=== PATIENT | male | born 1940 | race Caucasian/White ===

== ENCOUNTER 2017-04-02 12:00 | Day surgery (SDC) | payer MEDICARE, OTHER ==
[~2017-04-02] VITALS: Ht 177.8 cm; Wt 74.8 kg
[~2017-04-02 12:00] MED LIST: AMOX TR-K CLV1 EAC1 PO; ASPIRIN EC325 MG PO; BREO ELLIPTA I1 EACH INH; COMBIVENT RESPIM4 GM INH; CYCLOBENZAPRINE10 MG PO; DEXAMETHASONE4 MG PO; DICLOFENAC POTA50 MG PO; FLUTICASONE PRO16 GM NAS; GABAPENTIN100 MG PO; HYDROCODON-ACE1 EAC8 PO; IPRAT-ALBUT 0.5-3 ML INH; LEVAQUIN500 MG PO; MULTI-DAY VITA1 EACH PO; NICODERM CQ1 EAC1 TD; NORCO 5-325 TA1 EACH PO; PRAVACHOL20 MG PO; PREDNISONE10 MG PO; PROAIR HFA8.5 GM IH; SPIRIVA18 MCG IH; VENTOLIN HFA18 GM INH
--- NOTE | 2017-04-02 14:04 | NUR ---
04/02/17 1404 Maia Topete 1356 PATIENT ARRIVES TO PACU UNRESPONSIVE TO PAIN OR VERBAL STIMUIL. AUDIBLE COARSE LUNG SOUNDS, PRODUCT INSPECTION SUPERVISOR GIVING RACEMIC EPI. RESP EVEN AND UNLABORED. ORAL AIRWAY IN PLACE. MASK AT 8 LITERS. 1400 PATIENT OPENS EYES TO VERBAL STIMULI, FOLLOWS COMMANDS. ORAL AIRWAY REMOVED. PATIENT BACK TO SLEEP.
--- NOTE | 2017-04-02 14:51 | NUR ---
PT IS BACK TO DS FROM PACU. PT IS AWAKE AND ALERT. TOLERATING SIPS OF FLUIDS. CALL LIGHT WITHIN REACH. NO OTHER C/O'S AT THIS TIME. IS AT THE BEDSIDE. WILL REASSESS WITHIN THE HOUR.
--- NOTE | 2017-04-02 17:17 | EKG ---
[facility] [address] [facility] [place] [address] Signed Sinus rhythm with 1st degree AV block Left anterior fascicular block Abnormal ECG No previous ECGs available Confirmed by KWAN BYRD MD ([id number]) on 04/02/2017 5:17:48 PM Electronically Signed By: KWAN BYRD MD 04/02/17 1717 PATIENT NAME: ALFONSO ARNOLD Electrocardiogram DATE OF : 44 PHYSICIAN: KWAN BYRD MD REPORT #: [id number] REPORT IS CONFIDENTIAL AND NOT TO BE RELEASED WITHOUT AUTHORIZATION
--- NOTE | 2017-04-04 12:15 | OR ---
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 Cerebellar metastatic lesions. Long-standing smoking history. POSTOPERATIVE DIAGNOSIS Endobronchial lesion of right middle lobe with mediastinal adenopathy. PROCEDURE Flexible bronchoscopy with brush biopsy of endobronchial lesion. Cup biopsy of endobronchial lesion, right middle lobe. Transbronchial needle biopsy of subcarinal and precarinal lymph nodes. SURGEON: Kelli Green M.D. ANESTHESIA: General endotracheal (Kelli Brambila CRNA). 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 He has a long-standing history of smoking 1-1/2 pack of cigarettes daily. He had developed some gait abnormalities and underwent evaluation by his primary physician, Dr. Reginaldo Benitez and subsequently Dr. Kelli Goff and found to have cerebellar lesions, at least 16 in number and a chest x-ray and subsequently CT scan of the chest confirming profound mediastinal adenopathy including the right peribronchial and subcarinal areas. A central neoplasm of the right lung is suspected. He underwent a PET scan quite recently, which shows lesions also in the right adrenal. Plans have been arranged with Dr. Gatica (radiation oncologist) as well as Dr. Mendez for therapy to include radiation therapy initially. A biopsy confirmed malignancy is strongly desired and subtype of the tumor (most likely oat cell) also desirable. The patient on that basis is here for bronchoscopy with transbronchial biopsy as necessary. He and his understand the risks of bleeding, infection, failure of the procedure for diagnosis and wished to proceed. FINDINGS Conventional bronchial anatomy was noted. The pathologist was in the room during the course of the procedure allowing for immediate pathologic evaluation. An endobronchial neoplasm of the right middle lobe bronchus was noted. [place] and cup biopsies were obtained confirming malignancy. Better characterization of the tumor type is pending. Transbronchial, subcarinal, and precarinal lymph node biopsies were also undertaken without complication. Electronically Signed By: KELLI GREEN MD 04/04/17 1215 PATIENT NAME: ALFONSO ARNOLD OPERATIVE REPORT DATE OF : 44 PHYSICIAN: KELLI GREEN MD REPORT #: [id number] REPORT IS CONFIDENTIAL AND NOT TO BE RELEASED WITHOUT AUTHORIZATION [facility] [address] [place], [place] [address] Signed PROCEDURE The patient was brought to the operating room, given a general endotracheal anesthetic. An adapter was applied to the endotracheal tube. An Olympus flexible bronchoscope with video adapter was passed down the endotracheal tube visualizing the distal trachea. The main biju was identified and normal in its configuration. The scope was first passed to the right mainstem bronchus where the right upper lobe bronchus was identified and 3 segmental bronchi noted to be normal as well. The scope was withdrawn and then advanced to the bronchus intermedius. There was some erythematous change and further passage of the scope showed the right middle lobe bronchus to have a nearly occluding obvious endobronchial lesion. The scope was passed to the lower lobe bronchus where the superior segment and basilar bronchi were noted to be normal. The scope was withdrawn to the main biju once again and passed to the left side. The left mainstem bronchus was normal. Left upper lobe and lower lobe mainstem bronchi were normal. Segmental bronchi including left upper lobe with 3 segments and the lingular bronchus were all normal. Withdrawal of scope and then advanced to the lower lobe showed the segmental bronchi to be normal. The scope was withdrawn and plans made for biopsy of the right middle lobe bronchus. As expedient diagnosis was most desired by Dr. Gatica and Dr. Mendez, the pathologist (Dr. Tapan Membreno) was in the operating room, standing by with microscope and technologist at hand to allow for immediate evaluation. A brush biopsy was used of the right middle lobe bronchus and it was passed off to the pathologist who made a slide of it. Additionally, cup biopsies of the lesion were undertaken. These did confirm malignant cells. A transbronchial needle biopsy was then performed of the subcarinal lymph node station as well as the precarinal lymph node station using a 21-gauge aspiration needle technique. No complications occurred with this. Those specimens were passed into 2 separate containers containing CytoLyt solution. There is no sign of untoward bleeding. Irrigation was undertaken and the bronchoscope was removed. The patient was ultimately extubated and transferred to recovery room in good condition. The pathologist did confirm malignant cells, not otherwise characterized at this time, but permanent study should be diagnostic. Kelli Green MD JM/Modl Electronically Signed By: KELLI GREEN MD 04/04/17 1215 PATIENT NAME: ALFONSO ARNOLD OPERATIVE REPORT DATE OF : 44 PHYSICIAN: KELLI GREEN MD REPORT #: [id number] REPORT IS CONFIDENTIAL AND NOT TO BE RELEASED WITHOUT AUTHORIZATION [address], [place] [address] Signed /[id number] cc: MD Jonathan Perez MD Kent Walker, DO Bryce Lord, MD Electronically Signed By: KELLI GREEN MD 04/04/17 1215 PATIENT NAME: CLAYTONALFONSO CHAMPION OPERATIVE REPORT DATE OF : 44 PHYSICIAN: KELLI GREEN MD REPORT #: [id number] REPORT IS CONFIDENTIAL AND NOT TO BE RELEASED WITHOUT AUTHORIZATION
== END 2017-04-02 15:50 | disposition home or self-care (01) ==
LOC: DS 12:00
PROVIDERS: Surgery
PROC: 0BB58ZX Excision of Right Middle Lobe Bronchus, Via Natural or Artificial Opening Endoscopic, Diagnostic (ICD-10-PCS; 2017-04-02)
PROC: 07B74ZX Excision of Thorax Lymphatic, Percutaneous Endoscopic Approach, Diagnostic (ICD-10-PCS; 2017-04-02)
PROC: 0BB58ZX Excision of Right Middle Lobe Bronchus, Via Natural or Artificial Opening Endoscopic, Diagnostic (ICD-10-PCS; principal; 2017-04-02 13:30)
DX: R59.0 Localized enlarged lymph nodes (principal); J44.9 Chronic obstructive pulmonary disease, unspecified; F17.210 Nicotine dependence, cigarettes, uncomplicated; Z98.890 Other specified postprocedural states; Z79.899 Other long term (current) drug therapy
CPT/HCPCS: 00520; 88112; 88305; 88341; 88342; 93005; 93010; J0330; J0690; J1100; J1885; J2250; J2405; J2704; J2765; J3010; J7120